=== PATIENT | female | born 1990 | race Caucasian/White ===

== ENCOUNTER → 2017-07-17 | Outpatient (CLI) | payer OTHER ==
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
== END | disposition home or self-care (01) ==
LOC: RADMRIMAIN 06:27
PROVIDERS: ATTEND Orthopaedic Surgery
DX: S92.142A Displaced dome fracture of left talus, initial encounter for closed fracture (principal)